=== PATIENT | female | born 1940 | race Caucasian/White ===

== ENCOUNTER 2025-03-13 05:26 | Outpatient (REF) | payer MEDICARE, SELFPAY ==
[2025-03-13 05:29] LABS: MANUAL DIFF FLAG NO
[2025-03-13 05:44] LABS: Hematocrit 24.3 % (37.0-47.0); Hemoglobin 7.6 g/dl (12.0-16.0); Imm Gran Abs Auto 0.02 X10*3/uL (0.00-0.03); Imm Gran Pct Auto 0.3 % (0.0-0.4); Lymphocytes Absolute Auto 1.4 X10*3/uL (1.2-4.9); Mean Corpuscular HGB Conc 31.3 g/dl (31.0-35.0); Mean Corpuscular Hemoglobin 30.6 pg (27.0-33.0); Mean Corpuscular Volume 98.0 fL (80.0-98.0); NRBC Abs Auto 0.000 X10*3/uL (0.0-0.012); NRBC Pct Auto 0.0 /100WBC (0.0-0.2); Platelet Count 281 X10*3/uL (160-400); Red Blood Count 2.48 X10*6/uL (4.20-5.50); White Blood Count 5.8 X10*3/uL (4.8-10.8)
--- OUTSIDE RECORDS SUMMARY | 2025-04-19 20:00 | XMS_ITS | Clinical Summary ---
Author Organization Unknown Care Team Providers Care Records Management Manager Name Role Phone HELEN SALES ACCOUNT MANAGER, SHAHRIAR Unavailable Unavailable LES ([facility]) [facility] PT, JOSHUA Unavailable Unavailable ALYSSA STUDENT ACTIVITIES DIRECTOR, BELLO Unavailable Unavailab le Payers Payer Name Policy Type Policy Number Effective Date Expira tion Date MEDICARE - NGS [place] - PD [id number] Problems Condition Name Condition Details Condition Category Status Onset Date Resolution Date Last Treatment Date Treating Clinician Comments CODING TO BE COMPLETED AFTER CLINICAL DOCUMENTATIO N REVIEW Active 02-18 00:00: 00 Allergies, Adverse Reactions, Alerts Allergy Name Allergy Type Status Severity Reaction(s) Onset Date Inactive Date Treating Clinician Comments PENICILLIN Propensity to adverse reactions Active 02-24 07:03: 36 LORAZEPAM Propensity to adverse reactions Active 02-24 07:03: 45 MIRTAZAPINE Propensity to adverse reactions Active 02-24 07:03: 56 Medications Ordered Medication Name Filled Medication Name Start Date Stop Date Current Medication? Ordering Clinician Indication Dosage Frequency Signature (SIG) Comments Components mirtazapine 7.5 mg tablet 2023-06 00:00: 00 04-18 00:00 :00 No [id number] Per instruc tions Per instructio ns (route: oral) Med Classific ation: Central Nervous System Agents aspirin 81 mg tablet,coby yed release 2023-06 00:00: 00 07-10 23:59 :00 No [id number] 1 tablet DAILY 1 tablet DAILY (route: oral) Med Classific ation: Hematolog ical Agents atorvastati n 20 mg tablet 2023-06 00:00: 00 07-10 23:59 :00 No [id number] 1 tablet DAILY 1 tablet DAILY (route: oral) Med Classific ation: Cardiovas cular Therapy Agents Lexapro 10 mg tablet 2023-06 0-25 00:00: 00 07-10 23:59 :00 No [id number] 1 tablet DAILY 1 tablet DAILY (route: oral) Med Classific ation: Central Nervous System Agents lisinopril 20 mg tablet 2023-06 0-25 00:00: 00 07-10 23:59 :00 No [id number] 0.5 tablet DAILY 0.5 tablet DAILY (route: oral) Med Classific ation: Cardiovas cular Therapy Agents Multivitami n 50 Plus tablet 2023-06 0- 00:00: 00 07-10 23:59 :00 No [id number] 1 tablet DAILY 1 tablet DAILY (route: oral) Med Classific ation: Electroly te Balance-N utritiona l Products trazodone 50 mg tablet 2023-06 0- 00:00: 00 07-10 23:59 :00 No [id number] 0.5 tablet BEDTIME 0.5 tablet BEDTIME (route: oral) Med Classific ation: Central Nervous System Agents Vitamin D3 50 mcg (2,000 unit) capsule 2023-06 0 00:00: 00 07-10 23:59 :00 No [id number] 1 capsule DAILY 1 capsule DAILY (route: oral) Med Classific ation: Electroly te Balance-N utritiona l Products nitrofurant oin 100 mg tablet 2023-06- 00:00: 00 05-23 23:59 :00 No [id number] 100 mg 2 TIMES DAILY 100 mg 2 TIMES DAILY (route: oral) Med Classific ation: Genitouri nary Therapy Seroquel 50 mg tablet 2023-06 2-10 00:00: 00 07-10 23:59 :00 No [id number] 1 tablet BEDTIME 1 tablet BEDTIME (route: oral) Med Classific ation: Central Nervous System Agents acetaminoph en 500 mg tablet 3-25 00:00: 00 02-09 23:59 :00 No [id number] 1 tablet DAILY 1 tablet DAILY (route: oral) Med Classific ation: Analgesic , Anti-infl ammatory or Antipyret ic aspirin 81 mg tablet,coby shea release 09-16 00:00: 00 02-09 23:59 :00 No [id number] 1 tablet DAILY 1 tablet DAILY (route: oral) Med Classific ation: Hematolog ical Agents calcium 600 mg (as calcium carbonate 1,500 mg) tablet 09-16 00:00: 00 09-30 23:59 :00 No [id number] 1 tablet DAILY 1 tablet DAILY (route: oral) Med Classific ation: Electroly te Balance-N utritiona l Products Lexapro 20 mg tablet 09-16 00:00: 00 02-09 23:59 :00 No [id number] 1 tablet DAILY 1 tablet DAILY (route: oral) Med Classific ation: Central Nervous System Agents Lipitor 20 mg tablet 09-16 00:00: 00 02-09 23:59 :00 No [id number] 1 tablet BEDTIME 1 tablet BEDTIME (route: oral) Med Classific ation: Cardiovas cular Therapy Agents lisinopril 5 mg tablet 09-16 00:00: 00 02-09 23:59 :00 No [id number] 1 tablet DAILY 1 tablet DAILY (route: oral) Med Classific ation: Cardiovas cular Therapy Agents Miralax 17 gram/dose oral powder 09-16 00:00: 00 02-09 23:59 :00 No [id number] 17 gram DAILY 17 gram DAILY (route: oral) Med Classific ation: Gastroint estinal Therapy Agents multivitami n tablet 09-16 00:00: 00 02-09 23:59 :00 No [id number] 1 tablet DAILY 1 tablet DAILY (route: oral) Med Classific ation: Electroly te Balance-N utritiona l Products oxybutynin chloride 5 mg tablet 09-16 00:00: 00 02-09 23:59 :00 No [id number] 1 tablet DAILY 1 tablet DAILY (route: oral) Med Classific ation: Genitouri nary Therapy tramadol 50 mg tablet 09-16 00:00: 00 02-09 23:59 :00 No [id number] 0.5 tablet DAILY 0.5 tablet DAILY (route: oral) Med Classific ation: Analgesic , Anti-infl ammatory or Antipyret ic trazodone 50 mg tablet 09-16 00:00: 00 02-09 23:59 :00 No [id number] 1 tablet DAILY 1 tablet DAILY (route: oral) Med Classific ation: Central Nervous System Agents Vitamin D3 25 mcg (1,000 unit) capsule 09-16 00:00: 00 02-09 23:59 :00 No [id number] 1 capsule DAILY 1 capsule DAILY (route: oral) Med Classific ation: Electroly te Balance-N utritiona l Products calcium 600 mg (as calcium carbonate 1,500 mg) tablet 09-30 00:00: 00 02-09 23:59 :00 No [id number] 1 tablet 2 TIMES DAILY 1 tablet 2 TIMES DAILY (route: oral) Med Classific ation: Electroly te Balance-N utritiona l Products melatonin 3 mg tablet 10-09 00:00: 00 02-09 23:59 :00 No [id number] 1 tablet BEDTIME 1 tablet BEDTIME (route: oral) Med Classific ation: Central Nervous System Agents Immunizations Ordered Immunization Name Filled Immunization Name Date Status Comments Refusal Reason COVID BOOSTER, COVID BOOSTER 2022-02-23 00:00:00 PNEUMOCOCCAL (PPV), PPV 2020-02-24 00:00:00 Vital Signs Vital Name Observation Time Observation Value Commen ts Temperature 2025-03-02 13:28:00.000 97.5 [degF] Temperature 2025-02-28 10:50:00.000 97.5 [degF] Temperature 2025-02-26 15:25:00.000 97.5 [degF] Temperature 2025-02-20 11:30:00.000 97.1 [degF] BMI (%) 2025-02-20 11:30:00.000 19 kg/m2 Height 2025-02-20 11:30:00.000 62 [in_us] Pulse 2025-03-02 13:28:00.000 69 /min Pulse 2025-02-28 10:50:00.000 94 /min Pulse 2025-02-26 15:25:00.000 85 /min Pulse 2025-02-20 11:30:00.000 84 /min O2 Saturation (%) 2025-03-02 13:28:00.000 98 % O2 Saturation (%) 2025-02-28 10:50:00.000 96 % O2 Saturation (%) 2025-02-26 15:25:00.000 95 % Respirations 2025-03-02 13:28:00.000 18 /min Respirations 2025-02-28 10:50:00.000 18 /min Respirations 2025-02-26 15:25:00.000 18 /min Respirations 2025-02-20 11:30:00.000 17 /min Weight (lbs) 2025-02-20 11:30:00.000 105 [lb_av] Systolic Blood Pressure 2025-03-02 13:32:00.000 122 mm [Hg] Systolic Blood Pressure 2025-02-28 10:50:00.000 149 mm [Hg] Systolic Blood Pressure 2025-02-26 15:30:00.000 131 mm [Hg] Systolic Blood Pressure 2025-02-20 11:30:00.000 126 mm [Hg] Diastolic Blood Pressure 2025-03-02 13:32:00.000 50 mm [Hg] Diastolic Blood Pressure 2025-02-28 10:50:00.000 80 mm [Hg] Diastolic Blood Pressure 2025-02-26 15:30:00.000 51 mm [Hg] Diastolic Blood Pressure 2025-02-20 11:30:00.000 62 mm [Hg] Plan of Treatment Planned Activity Planned Date Details Comments Future Scheduled Test PHYSICAL T HERAPIST TO EVALUATE PATIENT SECONDARY TO FUNCTIONAL DEFICITS/SAFETY CONCERNS. [code = PHYSICAL THERAPIST TO EVALUATE PATIENT SECONDARY TO FUNCTIONAL DEFICITS/SAFETY CONCERNS.] Future Scheduled Test SUMMARY OF THERAPY EVAL/ASSESSMENT FINDINGS AND REASON(S) SKILLS OF A THERAPIST ARE INDICATED: PATIENT IS IN 84 YEAR OLD FEMALE WITH PRIMARY DIAGNOSIS OF ALZHEIMER'S DISEASE WITH DECLINING MOBILITY. PATIENT WITH RECENT FALLS. PATIENT WITH HISTORY OF FALLING WITH PELVIC FRACTURE. PAST MEDICAL HISTORY ALSO SIGNIFICANT FOR HYPERTENSION, HYPERLIPIDEMIA, OSTEOPOROSIS, DEPRESSION, REFLUX, HYPERPARATHYROID DISEASE. PRIOR LEVEL OF MOBILITY WAS INDEPENDENT TO SUPERVISE AMBULATION IN HOME. PATIENT IS ALERT HOWEVER UNABLE TO ANSWER MOST QUESTIONS DUE TO COGNITIVE ABILITIES. SHE STANDS 5 FT 2 IN TALL WITH A WEIGHT OF 105 LB. PATIENT DENIES PAIN AT THIS TIME. PATIENT CURRENTLY HAS FRONT WHEELED WALKER, SHOWER SEAT, COMMODE AND BED ALARM. CAREGIVERS REPORT OVERACTIVE BLADDER WITH INCONTINENCE. GRANDDAUGHTER PROVIDES ADL AND IADL CARE. RESTING BLOOD PRESSURE 126 / 62, HEART RATE 84, RESPIRATORY RATE 16 AND TEMPERATURE 97.8. PATIENT WITH HISTORY OF SKIN BREAKDOWN ON COCCYX AREA. PATIENT NOTED TO HAVE LEFT CALF GREATER THAN RIGHT CALF CIRCUMFERENCE SINCE FALL LAST AUGUST. PATIENT NOTED TO HAVE GROSS BODY TREMORS. RANGE OF MOTION AND EXTREMITIES TIMES FOUR WITHIN FUNCTIONAL LIMITS. NOTED WEAKNESS BILATERAL LOWER EXTREMITIES GROSSLY 3/5 HIPS KNEES. PATIENT REQUIRES ASSISTANCE TIMES TWO AT TIMES FOR BED MOBILITY AND TRANSFERS DEPENDING ON COGNITIVE LEVEL. PATIENT AMBULATING WITH FRONT-WHEELED WALKER AND LEVEL SURFACE CONTACT GUARD AND VERBAL CUES. PATIENT HAS ONE FLIGHT OF STAIRS TO ENTER AND EXIT HOME WHICH CAREGIVERS REPORT SIGNIFICANT DIFFICULTY AND FREQUENT REST STOPS. PATIENT WILL BENEFIT FROM SHORT-TERM HOME THERAPY TO ADDRESS BILATERAL LOWER EXTREMITY WEAKNESS, FUNCTIONAL MOBILITY TRAINING, CAREGIVER TRAINING. PATIENT AND CAREGIVERS AGREE WITH PLAN OF CARE. MEDICATION RECONCILIATION COMPLETED WITH PHYSICIAN PAPERWORK. [code = SUMMARY OF THERAPY EVAL/ASSESSMENT FINDINGS AND REASON(S) SKILLS OF A THERAPIST ARE INDICATED: PATIENT IS IN 84 YEAR OLD FEMALE WITH PRIMARY DIAGNOSIS OF ALZHEIMER'S DISEASE WITH DECLINING MOBILITY. PATIENT WITH RECENT FALLS. PATIENT WITH HISTORY OF FALLING WITH PELVIC FRACTURE. PAST MEDICAL HISTORY ALSO SIGNIFICANT FOR HYPERTENSION, HYPERLIPIDEMIA, OSTEOPOROSIS, DEPRESSION, REFLUX, HYPERPARATHYROID DISEASE. PRIOR LEVEL OF MOBILITY WAS INDEPENDENT TO SUPERVISE AMBULATION IN HOME. PATIENT IS ALERT HOWEVER UNABLE TO ANSWER MOST QUESTIONS DUE TO COGNITIVE ABILITIES. SHE STANDS 5 FT 2 IN TALL WITH A WEIGHT OF 105 LB. PATIENT DENIES PAIN AT THIS TIME. PATIENT CURRENTLY HAS FRONT WHEELED WALKER, SHOWER SEAT, COMMODE AND BED ALARM. CAREGIVERS REPORT OVERACTIVE BLADDER WITH INCONTINENCE. GRANDDAUGHTER PROVIDES ADL AND IADL CARE. RESTING BLOOD PRESSURE 126 / 62, HEART RATE 84, RESPIRATORY RATE 16 AND TEMPERATURE 97.8. PATIENT WITH HISTORY OF SKIN BREAKDOWN ON COCCYX AREA. PATIENT NOTED TO HAVE LEFT CALF GREATER THAN RIGHT CALF CIRCUMFERENCE SINCE FALL LAST AUGUST. PATIENT NOTED TO HAVE GROSS BODY TREMORS. RANGE OF MOTION AND EXTREMITIES TIMES FOUR WITHIN FUNCTIONAL LIMITS. NOTED WEAKNESS BILATERAL LOWER EXTREMITIES GROSSLY 3/5 HIPS KNEES. PATIENT REQUIRES ASSISTANCE TIMES TWO AT TIMES FOR BED MOBILITY AND TRANSFERS DEPENDING ON COGNITIVE LEVEL. PATIENT AMBULATING WITH FRONT-WHEELED WALKER AND LEVEL SURFACE CONTACT GUARD AND VERBAL CUES. PATIENT HAS ONE FLIGHT OF STAIRS TO ENTER AND EXIT HOME WHICH CAREGIVERS REPORT SIGNIFICANT DIFFICULTY AND FREQUENT REST STOPS. PATIENT WILL BENEFIT FROM SHORT-TERM HOME THERAPY TO ADDRESS BILATERAL LOWER EXTREMITY WEAKNESS, FUNCTIONAL MOBILITY TRAINING, CAREGIVER TRAINING. PATIENT AND CAREGIVERS AGREE WITH PLAN OF CARE. MEDICATION RECONCILIATION COMPLETED WITH PHYSICIAN PAPERWORK.] Future Scheduled Test PHYSICAL T HERAPIST TO ASSESS BEST PRACTICE INTERVENTIONS TO ASSIST PATIENTS TO IMPROVE OR STABILIZE MEDICAL STATUS AND PREVENT RE-HOSPITALIZATION. MEASURES INCLUDING REVIEW AND IDENTIFICATION OF CONCERNS FOR THE FOLLOWING AREAS: DEPRESSION, DRUG REGIMEN, ENVIRONMENTAL SAFETY ISSUES AND FALLS, PRESSURE ULCERS, PAIN, AND DISEASE MANAGEMENT. [code = PHYSICAL THERAPIST TO ASSESS BEST PRACTICE INTERVENTIONS TO ASSIST PATIENTS TO IMPROVE OR STABILIZE MEDICAL STATUS AND PREVENT RE-HOSPITALIZATION. MEASURES INCLUDING REVIEW AND IDENTIFICATION OF CONCERNS FOR THE FOLLOWING AREAS: DEPRESSION, DRUG REGIMEN, ENVIRONMENTAL SAFETY ISSUES AND FALLS, PRESSURE ULCERS, PAIN, AND DISEASE MANAGEMENT.] Future Scheduled Test PHYSICAL T HERAPY TO ESTABLISH /UPGRADE/DOWNGRADE THERAPEUTIC EXERCISE PROGRAM AND INSTRUCT PATIENT/CAREGIVER ON EXERCISE PRECAUTIONS WITH WRITTEN HOME PROGRAM. MAY INCLUDE PROM, AAROM, AROM, RROM APPROPRIATE TO IMPROVE FUNCTIONAL STRENGTH AND RANGE OF MOTION. [code = PHYSICAL THERAPY TO ESTABLISH /UPGRADE/DOWNGRADE THERAPEUTIC EXERCISE PROGRAM AND INSTRUCT PATIENT/CAREGIVER ON EXERCISE PRECAUTIONS WITH WRITTEN HOME PROGRAM. MAY INCLUDE PROM, AAROM, AROM, RROM APPROPRIATE TO IMPROVE FUNCTIONAL STRENGTH AND RANGE OF MOTION.] Future Scheduled Test PHYSICAL T HERAPY TO INSTRUCT PATIENT/CAREGIVER ON SAFE TRANSFER TECHNIQUES USING PROPER BODY MECHANICS AND EQUIPMENT. [code = PHYSICAL THERAPY TO INSTRUCT PATIENT/CAREGIVER ON SAFE TRANSFER TECHNIQUES USING PROPER BODY MECHANICS AND EQUIPMENT.] Future Scheduled Test PHYSICAL T HERAPY TO INSTRUCT PATIENT/CAREGIVER ON BED MOBILITY TECHNIQUES TO IMPROVE PATIENT MOBILITY AND POSITIONING TECHNIQUES IN ORDER TO INCREASE PATIENT S COMFORT AND DECREASE RISK OF SKIN BREAKDOWN. [code = PHYSICAL THERAPY TO INSTRUCT PATIENT/CAREGIVER ON BED MOBILITY TECHNIQUES TO IMPROVE PATIENT MOBILITY AND POSITIONING TECHNIQUES IN ORDER TO INCREASE PATIENT S COMFORT AND DECREASE RISK OF SKIN BREAKDOWN.] Future Scheduled Test PHYSICAL T HERAPY TO INSTRUCT PATIENT/CAREGIVER ON GAIT TRAINING TECHNIQUES USING APPROPRIATE ASSISTIVE DEVICE, PROPER BODY MECHANICS TO IMPROVE MOBILITY, AND PREVENT INJURY OF PATIENT AND/OR CAREGIVER. [code = PHYSICAL THERAPY TO INSTRUCT PATIENT/CAREGIVER ON GAIT TRAINING TECHNIQUES USING APPROPRIATE ASSISTIVE DEVICE, PROPER BODY MECHANICS TO IMPROVE MOBILITY, AND PREVENT INJURY OF PATIENT AND/OR CAREGIVER.] Future Scheduled Test PHYSICAL T HERAPY TO ASSESS AND RECOMMEND HOME SAFETY ADAPTATIONS AND EDUCATE PATIENT /CAREGIVER ON FALL PREVENTION STRATEGIES. [code = PHYSICAL THERAPY TO ASSESS AND RECOMMEND HOME SAFETY ADAPTATIONS AND EDUCATE PATIENT /CAREGIVER ON FALL PREVENTION STRATEGIES.] Goal Patient Goal - R ETURN TO PRIOR LEVEL OF MOBILITY Goal Provider Goal - PHYSICAL THERAPY EVALUATION TO BE COMPLETED WITH RECOMMENDATIONS AND/OR WRITTEN TREATMENT PLAN OF CARE ESTABLISHED FOR THE PHYSICIAN S SIGNATURE Goal Provider Goal - Goal Provider Goal - PATIENT/CAREGIVER VERBALIZES UNDERSTANDING OF THE INITIAL BEST PRACTICE RECOMMENDATIONS. PHYSICIAN TO BE NOTIFIED APPROPRIATE FOR ANY CHANGES OR COMPLICATIONS THROUGHOUT THE CERTIFICATION PERIOD. Goal Provider Goal - PATIENT/CAREGIVER WILL PERFORM THERAPEUTIC EXERCISE/S AND DEMONSTRATE PARTICIPATION IN A HOME PROGRAM. Goal Provider Goal - PATIENT/CAREGIVER WILL DEMONSTRATE SAFE TRANSFERS USING APPROPRIATE ASSISTIVE DEVICE, BODY MECHANICS AND EQUIPMENT. Goal Provider Goal - PATIENT/CAREGIVER WILL DEMONSTRATE IMPROVED BED MOBILITY TECHNIQUES. Goal Provider Goal - PATIENT/CAREGIVER WILL DEMONSTRATE IMPROVED GAIT TECHNIQUES TO MINIMIZE RISK OF INJURY. Goal Provider Goal - PATIENT/CAREGIVER WILL DEMONSTRATE/VERBALIZE UNDERSTANDING OF RECOMMENDATIONS TO INCREASE SAFETY IN THE HOME AND FALL PREVENTION. Encounters Start Date/Time End Date/Time Encounter Type Admission Type Attending [facility] Care [facility] Care Department Encounter ID Discharge Date Discharge Status Discharge Condition Discharge Reason Percent Goals Met 2025-02-20 00:00:00 2025-04-20 00:00:00 Outpatient FRANSISCO SALDANA ([facility] [id number] 36.36
== END 2025-03-13 05:27 | disposition home or self-care (01) ==
LOC: HO.MMNH1L 05:26
DX: R55 Syncope and collapse (principal); K92.2 Gastrointestinal hemorrhage, unspecified
CPT/HCPCS: 36415; 85025